=== PATIENT | male | born 1965 | race Caucasian/White ===

== ENCOUNTER 2017-03-23 06:30 | Day surgery (SDC) | payer BC ==
[~2017-03-23] VITALS: Ht 180.3 cm; Wt 121.5 kg
[~2017-03-23 06:30] MED LIST: ASPIRIN 81M81 MG/TA2 PO; B-12 500 MCG PO; FISH OIL 1000MG1 CAP PO; FLAX OIL1000 MG PO; LOPRESSOR 550 MG/TAB PO; MAGNESIUM250 M1 PO; MULTIPLE VITAMI1 CAP PO; NIACIN500 M4 PO; NORCO 325 MG-7.1 TAB PO; THE MEDICINE S300 M1 PO
[2017-03-23 07:10] VITALS: BP 127/96; PULSE 76; TEMP 97.5
[2017-03-23 08:45] VITALS: BP 115/93; PULSE 76; TEMP 98.3
[2017-03-23 09:00] VITALS: BP 121/96; PULSE 77
[2017-03-23 09:15] VITALS: BP 126/77; PULSE 71
[2017-03-23 09:30] VITALS: BP 125/68; PULSE 79
== END 2017-03-23 09:30 | disposition home or self-care (01) ==
LOC: SDCO 06:30
DX: Z12.11 Encounter for screening for malignant neoplasm of colon (principal); K44.9 Diaphragmatic hernia without obstruction or gangrene; K29.30 Chronic superficial gastritis without bleeding; K26.7 Chronic duodenal ulcer without hemorrhage or perforation; Z87.891 Personal history of nicotine dependence; K21.0 Gastro-esophageal reflux disease with esophagitis; I10 Essential (primary) hypertension; E78.00 Pure hypercholesterolemia, unspecified
CPT/HCPCS: OP; J2250; J3010; J7030

== ENCOUNTER → 2024-02-07 | Outpatient (CLI) | payer BC | LOC: COL.RAD 15:20 | DX: N50.3 Cyst of epididymis (principal); N44.2 Benign cyst of testis ==